=== PATIENT | female | born 1975 | race Caucasian/White ===

== ENCOUNTER 2019-02-26 20:41 | Inpatient (IN) | payer OTHER ==
[~2019-02-26] VITALS: Ht 167.6 cm; Wt 97.6 kg
[~2019-02-26 20:41] MED LIST: ALEVE220 MG; AMOXICILLIN875 MG PO; FLEXERIL5 MG PO; MEDROL DOSEPAK4 MG PO; MOTRIN,RUFEN800 MG PO; PERCOCET 325 MG1 TA6 PO; PREDNISONE20 MG PO; ROBAXIN500 MG PO; ROBAXIN750 MG PO; TRAMADOL HCL50 MG PO
[2019-02-26 20:43] VITALS: BP 149/81
[2019-02-26 23:00] VITALS: BP 118/69
--- NOTE | 2019-02-26 23:00 | NUR ---
A 43, admitted to ICCU, under the services of NAVID Carcamo DO with a diagnosis of ALLERGIC REACTION. Chief complaint is ANGIOEDEMA. Patient arrived via bed from ER. Monitor applied. Initial assessment completed. Vital signs taken and recorded. NAVID CARCAMO DO notified of admission to the unit. Orders received. See assessment for past medical history, medications and allergies. Patient and/or family oriented to unit. [facility] ICCU visitation policy reviewed. Clothing/patient valuable form completed. JERMAN GEIGER
--- NOTE | 2019-02-26 23:20 | NUR ---
DR. ELDER AWARE THAT PATIENT IS UP TO THE UNIT AND MED REC IS UP-TO-DATE. PATIENT CONDITION REVIEWED.
--- NOTE | 2019-02-26 23:27 | NUR ---
PATIENT HAS A HX OF AMENORRHEA AND WAS FOUND TO BE 4 YRS AGO WHILE HOSPITALIZED. PATIENT REPORTS HAVING UNPROTECTED SEX AND NOT CURRENTLY ON ANY FORMS OF CONTROL. BETA-HCG TEST ORDERED.
[2019-02-26 23:36] LABS: HEMATOCRIT 47.9 % (37.0-47.0); HEMOGLOBIN 15.5 g/dl (12.0-16.0); MEAN CELL VOLUME 85.4 fl (81.0-99.0); MEAN CORPUSCULAR HGB 27.6 pg (27.0-31.0); MEAN CORPUSCULAR HGB CONC 32.4 g/dl (33.0-37.0); MEAN PLATELET VOLUME 10.8 fl (9.6-12.3); PLATELET COUNT AUTOMATED 319 10*3/uL (130-400); RED BLOOD COUNT 5.61 10*6/uL (4.10-5.10)
[2019-02-26 23:48] LABS: URINE AMPHETAMINES < 1000 (1000ng/ml); URINE BARBITURATES < 200 (200ng/ml); URINE BENZODIAZEPINES < 200 (200ng/ml); URINE CANNABINOIDS (THC) > 50 (50ng/ml); URINE COCAINE < 300 (300ng/ml); URINE METHADONE < 300 (300ng/ml); URINE OPIATES < 300 (300ng/ml)
[2019-02-26 23:51] LABS: URINE PHENCYCLIDINE < 25 (25ng/ml)
[2019-02-26 23:52] LABS: ALBUMIN 3.7 gm/dl (3.1-4.5); ALKALINE PHOSPHATASE 71 U/L (45-117); BUN 10 mg/dl (7-24); CHLORIDE 107 mmol/L (98-107); CREATININE 1.06 mg/dL (0.55-1.02); POTASSIUM 2.7 mmol/L (3.5-5.1); SGOT/AST 12 IU/L (3-35); SGPT/ALT 28 U/L (12-78); SODIUM 140 mmol/L (136-145); TOTAL PROTEIN 7.7 gm/dL (6.4-8.2)
[2019-02-26 23:53] LABS: INTERNATIONAL NORM RATIO 0.9 (2.0-3.5)
[2019-02-26 23:55] LABS: PLATELET SUFFICIENCY NORMAL (NORMAL); TOTAL CELLS COUNTED 100 #CELLS
[2019-02-26 23:56] LABS: TROPONIN I < 0.015 ng/ml (<0.045)
[2019-02-27] VITALS (7 sets, daily range): BP systolic 102–147; BP diastolic 69–82
[2019-02-27 05:14] LABS: HEMATOCRIT 48.4 % (37.0-47.0); HEMOGLOBIN 15.7 g/dl (12.0-16.0); MEAN CELL VOLUME 84.8 fl (81.0-99.0); MEAN CORPUSCULAR HGB 27.5 pg (27.0-31.0); MEAN CORPUSCULAR HGB CONC 32.4 g/dl (33.0-37.0); PLATELET COUNT AUTOMATED 273 10*3/uL (130-400); RED BLOOD COUNT 5.71 10*6/uL (4.10-5.10); RED CELL DISTRI WIDTH 15.1 % (0-14.5)
[2019-02-27 05:50] LABS: ALKALINE PHOSPHATASE 74 U/L (45-117); HDL CHOLESTEROL 43 mg/dl (40-60); THYROID STIM HORMONE (HS) 0.892 uIU/ml (0.358-4.75); TOTAL PROTEIN 7.9 gm/dL (6.4-8.2)
[2019-02-27 06:29] LABS: PLASMA CELL 1 % (0-0); PLATELET SUFFICIENCY NORMAL (NORMAL); TOTAL CELLS COUNTED 100 #CELLS
[2019-02-27 07:28] LABS: VITAMIN D, 25-HYDROXY 13.8 ng/mL (30-100)
[2019-02-27 08:04] LABS: ALBUMIN 3.7 gm/dl (3.1-4.5); BUN 10 mg/dl (7-24); CHLORIDE 106 mmol/L (98-107); CHOLESTEROL 287 mg/dL (<200); CREATININE 0.99 mg/dL (0.55-1.02); LDL CHOLESTEROL 229 mg/dL (9-159); PHOSPHOROUS 1.8 mg/dL (2.5-4.9); SGOT/AST 14 IU/L (3-35); SGPT/ALT 29 U/L (12-78); TRIGLYCERIDES 77 mg/dl (<150); VLDL CHOLESTEROL 15 mg/dL (6-40)
[2019-02-27 08:11] LABS: SODIUM 138 mmol/L (136-145)
[2019-02-27 08:16] LABS: POTASSIUM 4.1 mmol/L (3.5-5.1)
--- NOTE | 2019-02-27 08:54 | NUR ---
RESTING QUIETLY, PT STATING THAT HER LIPS STILL FEEL SWOLLEN, PT IN NO RESP DISTRESS
--- NOTE | 2019-02-27 11:00 | NUR ---
Matrix Supervisor in to talk to patient. Patient states lives at home with her and daughter. There are 12 steps in the home. Physician: no family physician as Dr. Diego Ovalle is retiring, discussed resident clinic with patient Pharmacy: [facility] in [place] Home health services: none Patient's level of ADLs: INDEPENDENT Patient has working utilities: yes DME: none Follow-up physician's appointment after d/c: will be made by the hospitalist nurse director upon discharge Does patient want to access PORTAL?: no Discharge plan discussed with patient. She lives at home with her and daughter. She is independent in her ADLs and ambulation. Discussed home health care services and she denies any home needs at this time. When medically stable she will be discharged to home. Her will provide transportation on discharge. ERICKA LUNA
--- NOTE | 2019-02-27 14:57 | NUR ---
TRANSFERRED TO 407'1
[2019-02-28] VITALS: BP 131/73
[2019-02-28 06:26] LABS: HEMOGLOBIN 15.1 g/dl (12.0-16.0); MEAN CELL VOLUME 85.1 fl (81.0-99.0); MEAN CORPUSCULAR HGB 27.4 pg (27.0-31.0); MEAN CORPUSCULAR HGB CONC 32.1 g/dl (33.0-37.0); MEAN PLATELET VOLUME 11.1 fl (9.6-12.3); PLATELET COUNT AUTOMATED 276 10*3/uL (130-400); RED BLOOD COUNT 5.52 10*6/uL (4.10-5.10); WHITE BLOOD COUNT 27.6 10*3/uL (4.8-10.8)
[2019-02-28 06:35] LABS: BUN 13 mg/dl (7-24); CHLORIDE 109 mmol/L (98-107); CREATININE 0.83 mg/dL (0.55-1.02); POTASSIUM 4.1 mmol/L (3.5-5.1); SODIUM 139 mmol/L (136-145)
[2019-02-28 06:51] LABS: PLATELET SUFFICIENCY NORMAL (NORMAL); TOTAL CELLS COUNTED 100 #CELLS
[2019-02-28 08:00] VITALS: BP 117/70
--- NOTE | 2019-02-28 08:00 | NUR ---
Patient resting quietly with no c/o discomfort. Respirations easy and regular. Vital signs stable. No overt distress. ISA GORE
--- NOTE | 2019-02-28 11:00 | NUR ---
Banjo Repairer in to see patient. She is sitting on the edge of her bed without distress noted eating her breakfast. No new needs or request at this time. She denies any home needs. When medically stable she will be discharged to home. Per the multidisciplinary meeting she will be discharged to home today.
[2019-02-28] MEDS ORDERED: GOOD NEIGHBOR L10 MG PO (11:09)
[2019-02-28] MEDS ORDERED: VITAMIN D32000 UNI1 PO (11:09)
[2019-02-28] MEDS ORDERED: EPIPEN 2-P0.3 MG/0.3 IM (11:09)
--- NOTE | 2019-02-28 14:00 | NUR ---
LEAVING IN CARE OF SPOUSE.
== END 2019-02-28 14:00 | disposition home or self-care (01) | DRG 916 ==
LOC: ED 20:41 → EDHOLD 22:19 → ICCU 22:19 → 4E 22:19 → ICCU 22:29 → 4E 02-27 14:58
PROVIDERS: Emergency Medicine; Internal Medicine; ADMIT Internal Medicine
DX: T78.3XXA Angioneurotic edema, initial encounter (principal); R65.10 Systemic inflammatory response syndrome (SIRS) of non-infectious origin without acute organ dysfunction; R03.0 Elevated blood-pressure reading, without diagnosis of hypertension; E55.9 Vitamin D deficiency, unspecified; E78.00 Pure hypercholesterolemia, unspecified; E66.9 Obesity, unspecified; F17.210 Nicotine dependence, cigarettes, uncomplicated; T38.0X5A Adverse effect of glucocorticoids and synthetic analogues, initial encounter; Y92.238 Other place in hospital as the place of occurrence of the external cause; D72.829 Elevated white blood cell count, unspecified; Z71.6 Tobacco abuse counseling; Z80.8 Family history of malignant neoplasm of other organs or systems; Z68.34 Body mass index [BMI] 34.0-34.9, adult

== ENCOUNTER 2022-10-07 13:47 | Emergency (ER) | payer OTHER ==
[~2022-10-07] VITALS: Wt 97.5 kg
[~2022-10-07 13:47] MED LIST changes: +EPIPEN 2-P0.3 MG/0.3 IM; +GOOD NEIGHBOR L10 MG PO; +VITAMIN D32000 UNI1 PO
[2022-10-07] MEDS ORDERED: PERCOCET 5-3251 EACH PO (15:27)
== END 2022-10-07 15:52 | disposition home or self-care (01) ==
LOC: ED 13:47
DX: S52.102A Unspecified fracture of upper end of left radius, initial encounter for closed fracture (principal); S93.401A Sprain of unspecified ligament of right ankle, initial encounter; F17.210 Nicotine dependence, cigarettes, uncomplicated; W18.39XA Other fall on same level, initial encounter; Y93.89 Activity, other specified; Y92.89 Other specified places as the place of occurrence of the external cause; Y99.8 Other external cause status